=== PATIENT | female | born 1940 | race Two or more races ===

== ENCOUNTER 2021-03-02 12:54 | Emergency (ER) | payer OTHER ==
[2021-03-02 13:04] VITALS: BMI 26.7
[2021-03-02] MEDS ORDERED: CEFTRIAXONE 2,000 MG in DEXTROSE 5%-WATER - 50 ML IVPB ONE (14:05)
[2021-03-02] MEDS ORDERED: CEFTRIAXONE 2 GM/100 ML BAG IVPB ONE (14:23)
[2021-03-02 14:51] LABS: INR 1.01 (0.83-1.09); PROTHROMBIN TIME (PATIENT) 12.2 SEC (9.7-13.0)
[2021-03-02 14:53] LABS: ACTIVATED PTT 32.8 SECONDS (25.2-36.5)
[2021-03-02 15:33] LABS: BASO % 0.9 % (0-2.0); EOS % 0.9 % (0-4.5); HEMATOCRIT 39.3 % (32.4-45.2); HEMOGLOBIN 12.8 GM/dL (10.7-15.3); LYMPH % 34.4 % (8-40); MCH 28.4 pg (25.7-33.7); MCHC 32.5 g/dl (32.0-36.0); MEAN CELL VOLUME 87.3 fl (80-96); MEAN PLT VOLUME 9.3 fl (7.5-11.1); MONO % 12.6 % (3.8-10.2); NEUT % 51.2 % (42.8-82.8); PLATELET COUNT 192 K/MM3 (134-434); RDW 15.3 % (11.6-15.6); WHITE BLOOD COUNT 4.4 K/mm3 (4.0-10.0)
[2021-03-02 16:01] LABS: ALBUMIN 3.8 g/dl (3.4-5.0); BLOOD UREA NITROGEN 11.8 mg/dL (7-18); CALCIUM 9.1 mg/dL (8.5-10.1)
[2021-03-02 16:04] LABS: CREATININE 0.7 mg/dL (0.55-1.3)
[2021-03-02 16:07] LABS: BILIRUBIN,TOTAL 0.6 mg/dL (0.2-1); TOT PROT 7.5 g/dl (6.4-8.2)
[2021-03-02 17:59] VITALS: BP 158/54; PULSE 64; TEMP 97.8
== END 2021-03-02 17:50 | disposition short-term general hospital (02) ==
LOC: JER 12:54
DX: G93.9 Disorder of brain, unspecified (principal)
CPT/HCPCS: 36415; 80053; 83605; 85025; 85610; 85730; 86140; 86850; 86900; 86901; 87040; 93005; 93010; 99285-25; C9803; U0003; U0005